=== PATIENT | female | born 1990 | race Caucasian/White ===

== ENCOUNTER 2017-08-29 16:45 | Emergency (ER) | payer MEDICAID ==
[~2017-08-29] VITALS: Ht 175.3 cm; Wt 94.8 kg
[2017-08-29 16:48] VITALS: Ht 175.3 cm; Wt 94.8 kg
[2017-08-29 19:36] VITALS: BP 128/74
== END 2017-08-29 19:36 | disposition home or self-care (01) ==
LOC: ED 16:45
DX: M54.42 Lumbago with sciatica, left side (principal); M54.41 Lumbago with sciatica, right side
CPT/HCPCS: Q0162

== ENCOUNTER 2018-09-01 12:43 | Emergency (ER) | payer MEDICAID ==
[~2018-09-01] VITALS: Ht 175.3 cm; Wt 90.3 kg
[2018-09-01 12:45] VITALS: Ht 175.3 cm; Wt 90.3 kg
[2018-09-01 15:51] VITALS: BP 137/62
== END 2018-09-01 15:51 | disposition home or self-care (01) ==
LOC: ED 12:43
DX: G89.29 Other chronic pain (principal); M54.42 Lumbago with sciatica, left side
CPT/HCPCS: J1885